=== PATIENT | female | born 1990 | race Caucasian/White ===

== ENCOUNTER → 2018-10-25 22:08 | Emergency (ER) | payer BC | END | disposition still patient (30) | LOC: JD.ED 22:08 | DX: Z53.21 Procedure and treatment not carried out due to patient leaving prior to being seen by health care provider (principal) ==

== ENCOUNTER 2019-03-17 07:10 | Day surgery (SDC) | payer BC ==
--- NOTE | 2019-03-16 12:40 | PCM.LDHP ---
L&D History of Present Illness - General Date of Service: 03/17/19 Admit Problem/Dx: Admission Diagnosis/Problem Admission Diagnosis/Problem 03/16/19 12:31 10 5/7 week intrauterine , incompetent cervix. Source of Information: Patient History Limitations: Reports: No Limitations - History of Present Illness Introduction:: Bossman is a 28-year-old 2 para 1001 white female who is at 10- 5/7 weeks gestational age upon admission for a modified Shirodkar cervical cerclage placement. Her LEE is 10/07/2019 as based upon ultrasound and last menstrual period. Dating. The patient has had 2 ultrasounds both correlating well with dates. Last ultrasound done in evaluation of cervix shows a minimally dilated cervix at 4 mm. Length the cervix is normal at 3.57 and 4.03 cm on 2 evaluations. Patient has a history of 20 week loss with circumstances consistent with incompetent cervix. The procedure of modified Shirodkar cervical cerclage, risks, benefits, alternatives of care and follow-up were all discussed with patient. These include possible miscarriage, bleeding, infection , anesthesia problems, injury, other less frequent complications. She appears understand and wishes to proceed. Procedure in history 2 Para 0100. Certain last menstrual period. Started on 12/31/2018 not using any control at time of conception. Menstrual cycles every month to 35 days. Menarche 13. Last delivery occurred at 23 weeks gestational age after 5 hours of contractions/pressure. Male . demise. Baby's name was John Tsang. Allergies: 1. Amoxicillin which causes hives 2. Doxycycline which causes a rash Medications: 1. Aspirin 81 mg daily 2. Full gases 800 g daily 3. Progesterone vaginal [id number] mg per vagina twice a day 4. vitamins 1 daily Past medical history: 1. loss23 weeks-suspicious for incompetent cervix. Past surgical history: Unremarkable Family history: Mother is alive and well. Father is secondary to alcohol related to motor vehicle accident. 2 sisters alive and well. Paternal grandmother is alive with high blood pressure, high cholesterol and history of deep venous thrombosispresently age 92. Also had hypothyroidism on meds. Maternal grandfather is alive with blood pressure and high cholesterolage 85. Paternal grandmother secondary to alcoholism and was lung transplant patientwas a smoker. Grandfather secondary to Hodgkin's lymphoma. No other anesthesia, bleeding, blood clotting, -related problems noted in the family. Social history: Patient is single. Works at [employer]. Lives in [place], [place]. Does not use any significant muscle L call, drugs or tobacco. Significant other and father the baby is Ken Tsang. Review of systems: In general patient has no complaints. She does have some symptoms but these are manageable. Has no symptoms of labor, cramps or pelvic pressure. Skin: Negative Lungs: No infectious symptoms or shortness of breath Cardiovascular: No chest pain or exercise intolerance Breasts: No lumps, changes in size, pain, dimpling, discharge or axillary or supraclavicular concerns. GI: Negative : Negative other than symptoms Musculoskeletal: Negative Neurological: Negative In general the patient is well-developed, well-nourished, pleasant female of stated age in no acute distress. Vital signs: Weight is 245. Height is 5 feet 6. Pre BMI was 38.2. Blood pressure 112/64. Skin is warm dry without lesions. HEENT, neck and back within normal limits. Lungs are clear with good breath sounds in all lung mccarthy. Cardiovascular exam shows regular and rhythm without murmurs. Abdomen is flat, soft, nontender without masses or organomegaly. Positive bowel sounds are noted. No inguinal lymphadenopathy or hernias are noted. Genital per speculum bimanual shows normal external genitalia, BUS, pubic hair pattern. There is normal support, secretions and estrogenization vagina. Uterus is 11 weeks size, anterior, freely mobile, without parametrial induration or adnexal abnormalities. Cervix as described above. Extremities and neurological exam are grossly within normal limits. 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 - Past Surgical History HEENT Surgical History: Reports: Oral Surgery H&P Review of Systems - Review of Systems: Review Of Systems: See Below L&D Exam - Exam Exam: See Below Problem List Initiated/Reviewed/Updated: Yes Orders Last 24hrs: Active Orders 24 hr Category Date Time Status Peripheral IV Care [RC] . DIRECTED Care 03/17/19 00:01 Active Verify Patient Consent Obtain [RC] ASDIRECTED Care 03/17/19 00:01 Active Lactated Ringers [Ringers, Lactated] 1,000 ml Med 03/17/19 00:01 Active IV ASDIRECTED Lidocaine 1%/Sod Bicarbonate [Buffered Lidocaine 1% in Med 03/17/19 00:01 Active NS 8.4%] 0.25 ml IDERM ONETIME PRN Sodium Chloride 0.9% [Saline Flush] Med 03/17/19 00:01 Active 10 ml FLUSH ASDIRECTED PRN Medication Administration Instruction [OM.PC] Routine Oth 03/17/19 00:01 Ordered Peripheral IV Insertion Adult [OM.PC] Routine Oth 03/17/19 00:01 Ordered Medication Orders Lactated Ringer's (Ringers, Lactated) 1,000 mls @ 125 mls/hr IV ASDIRECTED LA Stop: 03/17/19 23:00 Lidocaine/Sodium Bicarbonate (Buffered Lidocaine 1% In Ns 8.4%) 0.25 ml IDERM ONETIME PRN PRN Reason: Prior to IV Start Stop: 03/17/19 18:00 Sodium Chloride (Saline Flush) 10 ml FLUSH ASDIRECTED PRN PRN Reason: Keep Vein Open Stop: 03/17/19 18:00 Assessment/Plan Comment:: 1. History of incompetent cervix?10-5/7 week intrauterine at time of admission for a modified Shirodkar cervical cerclage 2. Risk factors for the -increased weight, . Plan: 1. Modified Shirodkar cervical cerclage 2. DVT prophylaxis with SCDs 3. Infection prophylaxis with Ancef 2 g IV preop. We'll give a test dose prior to this because of her allergy to penicillins. 4. labs done. These were forwarded to the OR.
[~2019-03-17 07:10] MED LIST: Lactated Ringers 1,000 ML IV SCH; Lidocaine 1%/Sod Bicarbonate in NS 8.4% 1 ML Syringe IDERM PRN; Sodium Chloride 0.9% 10 ML Syringe FLUSH PRN
[2019-03-17] MEDS ORDERED: Ondansetron 4 MG/2 ML SDV ONE (07:28)
[2019-03-17] MEDS ORDERED: Propofol 200 MG/20 ML SDV ONE (07:28)
[2019-03-17] MEDS ORDERED: Rocuronium 50 MG/5 ML Vial ONE (07:28)
[2019-03-17] MEDS ORDERED: fentaNYL 250 MCG/5 ML SDV ONE (07:29)
[2019-03-17] MEDS ORDERED: ceFAZolin 1 GM Vial ONE (07:29)
[2019-03-17] MEDS ORDERED: Lidocaine 1% 4 ML ONE (07:29)
[2019-03-17] MEDS ORDERED: Midazolam 1 MG/ML 2 ML SDV ONE (07:29)
--- NOTE | 2019-03-17 07:47 | PCM.PREANE ---
Preanesthetic Assessment - Anesthesia/Transfusion/Family Hx Anesthesia History: Prior Anesthesia Without Reaction Family History of Anesthesia Reaction: No Transfusion History: No Prior Transfusion(s) - Review of Systems General: No Symptoms Pulmonary: No Symptoms Cardiovascular: Dyspnea on Exertion Gastrointestinal: No Symptoms Neurological: No Symptoms Other: Reports: None - Physical Assessment NPO Status Date: 03/16/19 NPO Status Time: 00:00 Pulse: 89 O2 Sat by Pulse Oximetry: 96 Respiratory Rate: 18 Blood Pressure: 150/91 Temperature: 36.9 C Height: 1.68 m Weight: 109.588 kg ASA Class: 2 Mental Status: Alert & Oriented x3 Airway Class: Mallampati = 2 Dentition: Reports: Normal Dentition, [place](s) Thyro-Mental Finger Breadths: 2 Mouth Opening Finger Breadths: 2 ROM/Head Extension: Full Lungs: Clear to Auscultation, Normal Respiratory Effort Cardiovascular: Regular Rate, Regular Rhythm - Allergies Allergies/Adverse Reactions: Allergies Allergy/AdvReac Type Severity Reaction Status Date / Time amoxicillin Allergy Rash Verified 03/16/19 13:32 doxycycline Allergy Rash Verified 03/16/19 13:32 - Blood Blood Available: No Product(s) Available: None - Anesthesia Plan Pre-Op Medication Ordered: None - Acknowledgements Anesthesia Type Planned: General Anesthesia Pt an Appropriate Candidate for the Planned Anesthesia: Yes Alternatives and Risks of Anesthesia Discussed w Pt/Guardian: Yes Pt/Guardian Understands and Agrees with Anesthesia Plan: Yes PreAnesthesia Questionnaire HEENT History: Reports: None Cardiovascular History: Reports: None Respiratory History: Reports: Asthma Gastrointestinal History: Reports: None Genitourinary History: Reports: None 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 Musculoskeletal History: Reports: None Neurological History: Reports: None Psychiatric History: Reports: None Endocrine/Metabolic History: Reports: None Hematologic History: Reports: None Immunologic History: Reports: None Oncologic (Cancer) History: Reports: None Dermatologic History: Reports: None - Past Surgical History Head Surgeries/Procedures: Reports: None HEENT Surgical History: Reports: Oral Surgery Cardiovascular Surgical History: Reports: None Respiratory Surgical History: Reports: None GI Surgical History: Reports: None Female Surgical History: Reports: None Male Surgical History: Reports: None Endocrine Surgical History: Reports: None Neurological Surgical History: Reports: None Musculoskeletal Surgical History: Reports: None Oncologic Surgical History: Reports: None Dermatological Surgical History: Reports: None - SUBSTANCE USE Smoking Status *Q: Never Smoker Tobacco Use Within Last Twelve Months: No Second Hand Smoke Exposure: Yes Days Per Week of Alcohol Use: 0 Number of Drinks Per Day: 0 Total Drinks Per Week: 0 Recreational Drug Use History: No - HOME MEDS Home Medications: Home Meds Aspirin [Ecotrin] 81 mg PO DAILY 03/16/19 [History] Folic Acid 0.8 mg PO DAILY 03/16/19 [History] Pnv No.95/Ferrous Fum/Folic AC [ Caplet] 1 tab PO DAILY 03/16/19 [ History] Progesterone Vaginal Suppos 1 dose VAG BID 03/16/19 [History] - CURRENT (IN HOUSE) MEDS Current Meds: Current Medications Lactated Ringer's (Ringers, Lactated) 1,000 mls @ 125 mls/hr IV ASDIRECTED LA Stop: 03/17/19 23:00 Lidocaine/Sodium Bicarbonate (Buffered Lidocaine 1% In Ns 8.4%) 0.25 ml IDERM ONETIME PRN PRN Reason: Prior to IV Start Stop: 03/17/19 18:00 Sodium Chloride (Saline Flush) 10 ml FLUSH ASDIRECTED PRN PRN Reason: Keep Vein Open Stop: 03/17/19 18:00 Discontinued Medications Cefazolin Sodium (Ancef) Confirm Administered Dose 2 gm .ROUTE .STK-MED ONE Stop: 03/17/19 07:30 Fentanyl (Sublimaze) Confirm Administered Dose 250 mcg .ROUTE .STK-MED ONE Stop: 03/17/19 07:30 Lidocaine HCl (Xylocaine-Mpf 1%) Confirm Administered Dose 4 mls @ as directed .ROUTE .STK-MED ONE Stop: 03/17/19 07:30 Midazolam HCl (Versed 1 Mg/Ml) Confirm Administered Dose 2 mg .ROUTE .STK-MED ONE Stop: 03/17/19 07:30 Ondansetron HCl (Zofran) Confirm Administered Dose 4 mg .ROUTE .STK-MED ONE Stop: 03/17/19 07:29 Propofol (Diprivan 20 Ml) Confirm Administered Dose 200 mg .ROUTE .STK-MED ONE Stop: 03/17/19 07:29 Rocuronium [place] (Zemuron) Confirm Administered Dose 50 mg .ROUTE .[facility] ONE Stop: 03/17/19 07:29
[2019-03-17] MEDS ORDERED: Lactated Ringers 1,000 ML ONE (08:39)
[2019-03-17] MEDS ORDERED: Acetaminophen 325 MG Tab PO PRN (08:47)
--- NOTE | 2019-03-17 08:52 | PCM.OPNOTE ---
- General Post-Op/Procedure Note Date of Surgery/Procedure: 03/17/19 Operative Procedure(s): Modified Shirodkar cervical cerclage Findings: Cervix was dilated to 5-10 mm. Cervical consistency was very soft. Pre Op Diagnosis: 1. 10-5/7 week intrauterine . 2. Incompetent cervix Post-Op Diagnosis: Same Anesthesia Technique: General LMA Primary Surgeon: Matias Mejia Secondary Surgeon: Estevan Clifford Anesthesia Provider: Robel Hdez Reason Retail Property Manager Was Necessary: Retraction, assistance, patient safety, quality of care. Fluid Replacement, Intraop: 1,000 EBL in mLs: 5 Complications: None Condition: Good Free Text/Narrative:: Surgery duration: 12 minutes Procedure: The patient was taken to the operating room and placed in a supine position on the operating table. She received 2 g of Ancef preoperatively for infection prophylaxis and had sequential compression stockings in place for DVT prophylaxis. She was administered MAC anesthesia and after adequate anesthesia was placed in a dorsal lithotomy position. Patient was prepped on the exterior by staff and was draped in usual fashion. A speculum was placed and a very gentle internal Betadine prep was done by myself. Cervix was visualized, evaluated and found to be dilated as previously documented. The anterior lip of the cervix and the posterior lip of the cervix were grasped with ring forceps and gently retracted to length and cervix as much as possible. 5 mm incision was made at the 12:00 and at 6 start position through which the Tevdek tape was passed. Using Tevdek tape a circumferential stitch was placed with around the cervix at the highest possible position. It was placed in a modified Shirodkar fashion entering the subepithelial layer anteriorly at 12 o'clock position and placed in full circumference to anchor the suture in the appropriate position. When this was finished it was tied at the 12 o'clock position. An 2-0 silk suture was then used to secure the ends of the Tevdek tape to keep them from unraveling. At this time old blood was removed from the vagina. The cervix was noted to be entirely closed with the suture placement. Stitch was in place and approximately 1-1/2 cm from the end of the cervix. No problems were encountered. hemostasis was confirmed. The speculum was removed from the vagina , patient was returned to supine position and anesthesia was reversed. She left the operating room in good condition.
--- NOTE | 2019-03-17 09:06 | PCM.POSTAN ---
POST ANESTHESIA ASSESSMENT - MENTAL STATUS Mental Status: Alert, Oriented - VITAL SIGNS Pulse Rate: 109 SaO2: 92 Resp Rate: 11 Blood Pressure: 152/78 Temperature: 36.4 C - RESPIRATORY Respiratory Status: Respiratory Rate WNL, Airway Patent, O2 Saturation Stable, Supplemental Oxygen - CARDIOVASCULAR CV Status: Pulse Rate WNL, Blood Pressure Stable - GASTROINTESTINAL GI Status: No Symptoms - PAIN Pain Score: 0 - POST OP HYDRATION Hydration Status: Adequate & Stable - OBSERVATIONS Free Text/Narrative:: no anesthesia complications noted
== END 2019-03-17 12:08 | disposition home or self-care (01) ==
LOC: JD.SDS 07:10
PROVIDERS: ATTEND Obstetrics & Gynecology
DX: O34.31 Maternal care for cervical incompetence, first trimester (principal); O99.511 Diseases of the respiratory system complicating pregnancy, first trimester; J45.909 Unspecified asthma, uncomplicated; O99.281 Endocrine, nutritional and metabolic diseases complicating pregnancy, first trimester; E28.2 Polycystic ovarian syndrome; O09.291 Supervision of pregnancy with other poor reproductive or obstetric history, first trimester; Z3A.10 10 weeks gestation of pregnancy; Z88.0 Allergy status to penicillin; Z88.1 Allergy status to other antibiotic agents; Z79.82 Long term (current) use of aspirin; Z79.899 Other long term (current) drug therapy
CPT/HCPCS: 59320; J0690; J2001; J2405; J2704; J3010; J7120; 00948; J2250

== ENCOUNTER 2019-10-02 08:37 | Inpatient (IN) | payer BC ==
--- NOTE | 2019-10-02 20:11 | PCM.LDHP ---
L&D History of Present Illness - General Date of Service: 10/02/19 Admit Problem/Dx: Admission Diagnosis/Problem Admission Diagnosis/Problem 10/02/19 19:58 Bossman is a 29 y/o G 2 P 0100 white female who is admitted at 39 2/7 weeks GA with an LEE of 10/07/2019 for induction of labor. Source of Information: Patient History Limitations: Reports: No Limitations - History of Present Illness Introduction:: Bossman is a 29 y/o G 2 P 0100 white female who is admitted at 39 2/7 weeks GA with an LEE of 10/07/2019 for induction of labor.She has a history of incompetent cervix with last with which she delivered at 23 weeks gestational age in a fashion such that she had no significant labor symptoms until the time of immediate delivery. Were consistent most probably with incompetent cervix. Patient underwent modified Shirodkar cervical cerclage with this at approximately 12 weeks' gestation. The cervical cerclage was removed at 37-4/7 weeks gestational age without problems. She lives in [place], [place] and is admitted for elective induction. The procedure, risks , benefits are discussed in detail patient. She appears to understand and wishes to proceed. Of note is that her last ultrasound performed at 38+ weeks estimated weight to be 9 lbs. 2 oz. She is a gestational diabetic and has been on diet control initially and then glyburide 5 mg per day control thereafter reaches had blood sugars under good control with glyburide therapy. She's been on baby aspirin 81 mg per day. 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 LEE 10/07/2019 is based upon a certain last menstrual. Supported by multiple pregnancies throughout the course of . Patient's previous obstetric history includes menarche age 13. Cycles every month. LMP relatively certain. Patient delivered on 10/25/2018 at 23 weeks gestational age after what appeared to be a precipitous labor male infant delivered named John Tsang who shortly after because of severe prematurity. course: Patient is seen for first visit on 03/14/2019 at 10 weeks and 3 days.. She had a previous early ultrasound both ultrasounds supported her LEE of 10/07/2019. Patient is made approximately 19 pound weight gain from 245-264 pounds during the course of the . Her vital signs were stable throughout the course. Fundal height growth has been appropriate. Estimated weight is ahead of schedule. Patient had a negative group B strep screen. She is gestational diabetic on glyburide. 5 Shirodkar cerclage was placed at about 12 weeks gestational age and was removed at 37-4/7 weeks gestational age on 09/20/2019. By physical profiles starting at 32 weeks and all were within normal limits. She declined genetic testing. [place] depression screening score on 05/31/2019 was 6/30. The patient had supplementation with progesterone early in the due to progesterone deficiency. She received the supplementation via vaginal suppository to the end of 12 weeks' gestation. She is felt to have polycystic ovarian syndrome.The patient received her influenza immunization on 08/02/2019. Her T dap was given on 08/02/2019. She is rubella immune. Laboratory tests and shows blood to be a positive with negative antibody screen. First hemoglobin is 13.0 g/dL with platelets of 441, 000. She is rubella immune. RPR is nonreactive. Urine culture was negative. Hepatitis B surface antigen and HIV assays were both negative. Chlamydia and gonorrhea tests were both negative. Second trimester labs included a hemoglobin of 10.6 g or deciliter and platelets at 349,000. Her diabetic screening test was 200. Gestational diabetic with this one result. Her RPR on 07/04/2019 is nonreactive. Her group B strep screen was negative. Patient's diabetes was initially controlled with diet but with time. Patient failed diet control alone and was started on glyburide. With glyburide therapy blood sugars have been reasonable. Allergies: 1. Amoxicillin which causes hives 2. Doxycycline which causes a rash Medications: 1. Glyburide 5 mg by mouth daily at at bedtime 2. Aspirin 81 mg by mouth daily 3. Folic acid 800 g by mouth daily 4. vitamins 1 by mouth daily Past medical history: 1. Polycystic ovarian syndrome. 2. Incompetent cervix 3. Obesity Past surgical history: 1. Placement of modified Shirodkar cervical cerclage placed on 03/17/2019 at approximately 12 weeks gestational age. Family history: Others alive and well. Father is secondary to an alcohol-related motor vehicle accident. 2 sisters are alive and well. Maternal grandmother is alive but with high blood pressure, high cholesterol and blood clots in her legs at age 92. Maternal grandfather is alive with high blood pressure and high cholesterol at age 85. Paternal grandmother is secondary to alcoholism. Was a smoker. Did have a lung transplant. Paternal grandfather is 6 secondary to Hodgkin's lymphoma. No other known family history of cancer. No bleeding or blood clotting disorders, anesthesia- related problems or related concerns. Grandmother also had hypothyroidism diagnosed in her late 60s and placed on medications. Social history: Patient is single. Significant other is Ken Tsang. They live in [facility]. She works at [employer]. She has had some college education. She does not use any significant loss of alcohol, drugs or tobacco. Review of systems: In general patient has no complaints. Baby has been active. She has not had any significant contractions. Skin: Negative Lungs: No infectious symptoms or shortness of breath Cardiovascular: No chest pain or exercise intolerance Breasts: Changes associated with . GI: Negative : As related to . Cervix is 2 cm dilated, 80% effaced, -4 station, cephalic presentation, soft, mid position. Musculoskeletal: Negative Neurological: Negative - Related Data Allergies/Adverse Reactions: Allergies Allergy/AdvReac Type Severity Reaction Status Date / Time amoxicillin Allergy Hives Verified 03/17/19 07:54 doxycycline Allergy Hives Verified 03/17/19 07:54 Home Medications: Home Meds Aspirin [Ecotrin EC] 81 mg PO BEDTIME 03/16/19 [History] Folic Acid 0.8 mg PO BEDTIME 03/16/19 [History] Pnv No.95/Ferrous Fum/Folic AC [ Caplet] 1 tab PO BEDTIME 03/16/19 [ History] Progesterone Vaginal Suppos 1 dose VAG BID 03/16/19 [History] Acetaminophen [Tylenol] 650 mg PO Q4H PRN tablet 03/17/19 [Rx] Past Medical History HEENT History: Reports: None Cardiovascular History: Reports: None Respiratory History: Reports: Asthma Gastrointestinal History: Reports: None Genitourinary History: Reports: None 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 Musculoskeletal History: Reports: None Neurological History: Reports: None Psychiatric History: Reports: None Endocrine/Metabolic History: Reports: None Hematologic History: Reports: None Immunologic History: Reports: None Oncologic (Cancer) History: Reports: None Dermatologic History: Reports: None - Past Surgical History Head Surgeries/Procedures: Reports: None HEENT Surgical History: Reports: Oral Surgery Cardiovascular Surgical History: Reports: None Respiratory Surgical History: Reports: None GI Surgical History: Reports: None Female Surgical History: Reports: None Male Surgical History: Reports: None Endocrine Surgical History: Reports: None Neurological Surgical History: Reports: None Musculoskeletal Surgical History: Reports: None Oncologic Surgical History: Reports: None Dermatological Surgical History: Reports: None Social & Family History - Caffeine Use Caffeine Use: Reports: Coffee H&P Review of Systems - Review of Systems: Review Of Systems: See Below L&D Exam - Exam Exam: See Below Problem List Initiated/Reviewed/Updated: Yes Assessment/Plan Comment:: 1.39-2/7 week intrauterine , history of incompetent cervix with cerclage placement/removal now admitted for induction of labor. 2. Risk factors include the following: History of incompetence cervix requiring cerclage, the distance from the hospital, history of gestational diabetes on medications, history of PCO S and estimated weight of 9 lbs. 2 oz. on last ultrasound. 3. Group B strep negative. 4. Patient is up-to-date regarding her influenza vaccination, Her T dap and her rubella immunization. 5. Patient plans to breast-feed 6. Patient like to do natural labor but is accepting of an epidural if necessary Plan: 1. Pitocin induction of labor to be followed by artificial rupture membranes augmentation when the baby's head descensus.. 2. Epidural when necessary per patient desire 3. Support breast-feed incision 4. I discussed with patient yesterday weight of the baby and alternative routes of delivery. She would like to proceed with labor. She is understanding of the increased risk for possible , older dystocia, possible injury. 5. We'll monitor labor closely. We'll intervene as indicated.
[2019-10-02] MEDS ORDERED: Sodium Chloride 0.9% 10 ML Syringe FLUSH PRN (20:17)
[2019-10-02] MEDS ORDERED: Ondansetron 4 MG/2 ML SDV IVPUSH PRN (20:17)
[2019-10-02] MEDS ORDERED: Calcium Carbonate 500 MG Tab.Chew PO PRN (20:17)
[2019-10-02] MEDS ORDERED: Lidocaine 1% 50 ML MDV INJECT ONE (20:17)
[2019-10-02] MEDS ORDERED: Nalbuphine 10 MG/1 ML Vial IVPUSH PRN (20:17)
[2019-10-02] MEDS ORDERED: Oxytocin/Lactated Ringers 10 UNIT/1,000 ML BAG IV SCH ×2 (20:30)
[2019-10-02] MEDS: Lactated Ringers 1,000 ML IV SCH (21:03)
[2019-10-03] MEDS ORDERED: Bupivacaine 0.25% 10 ML SDV ONE
[2019-10-03] MEDS ORDERED: fentaNYL 100 MCG/2 ML SDV EPIDUR PRN (07:01)
[2019-10-03] MEDS ORDERED: Ondansetron 4 MG/2 ML SDV IVPUSH PRN ×2 (07:01→22:02)
[2019-10-03] MEDS ORDERED: ePHEDrine 50 MG/ML SDV IVPUSH PRN ×2 (07:01→22:02)
--- NOTE | 2019-10-03 07:03 | PCM.PREANE ---
Preanesthetic Assessment - Anesthesia/Transfusion/Family Hx Anesthesia History: Prior Anesthesia Without Reaction Family History of Anesthesia Reaction: No Transfusion History: No Prior Transfusion(s) Intubation History: Unknown - Review of Systems General: No Symptoms Pulmonary: No Symptoms Cardiovascular: No Symptoms Gastrointestinal: No Symptoms Neurological: No Symptoms Other: Reports: Diabetes (gestational DM), Sinus Problem (seasonal allergies) - Physical Assessment NPO Status Date: 10/03/19 Vital Signs: Last Vital Signs Temp 36.5 C 10/02/19 19:10 Pulse 95 10/02/19 19:10 Resp 16 10/02/19 19:10 BP 149/79 H 10/02/19 19:10 Pulse Ox 96 10/02/19 19:10 Height: 1.68 m Weight: 122.289 kg ASA Class: 2 Mental Status: Alert & Oriented x3 Airway Class: Mallampati = 2 Dentition: Reports: Normal Dentition, Caries Thyro-Mental Finger Breadths: 3 Mouth Opening Finger Breadths: 3 ROM/Head Extension: Full Lungs: Clear to Auscultation, Normal Respiratory Effort Cardiovascular: Regular Rate, Regular Rhythm, No Murmurs - Lab Values: Laboratory Last Values WBC 8.20 K/mm3 (3.98-10.04) 10/02/19 20:40 RBC 3.71 M/mm3 (3.98-5.22) L 10/02/19 20:40 Hgb 11.2 gm/dl (11.2-15.7) 10/02/19 20:40 Hct 33.5 % (34.1-44.9) L 10/02/19 20:40 MCV 90.3 fl (79.4-94.8) 10/02/19 20:40 MCH 30.2 pg (25.6-32.2) 10/02/19 20:40 MCHC 33.4 g/dl (32.2-35.5) 10/02/19 20:40 RDW Std Deviation 45.5 fL (36.4-46.3) 10/02/19 20:40 Plt Count 292 K/mm3 (182-369) 10/02/19 20:40 MPV 10.0 fl (9.4-12.3) 10/02/19 20:40 Neut % (Auto) 70.0 % (34.0-71.1) 10/02/19 20:40 Lymph % (Auto) 16.6 % (19.3-51.7) L 10/02/19 20:40 [place] % (Auto) 11.7 % (4.7-12.5) 10/02/19 20:40 Eos % (Auto) 1.5 (0.7-5.8) 10/02/19 20:40 Baso % (Auto) 0.1 % (0.1-1.2) 10/02/19 20:40 Neut # (Auto) 5.74 K/mm3 (1.56-6.13) 10/02/19 20:40 Lymph # (Auto) 1.36 K/mm3 (1.18-3.74) 10/02/19 20:40 [place] # (Auto) 0.96 K/mm3 (0.24-0.36) H 10/02/19 20:40 Eos # (Auto) 0.12 K/mm3 (0.04-0.36) 10/02/19 20:40 Baso # (Auto) 0.01 K/mm3 (0.01-0.08) 10/02/19 20:40 RPR Non-reactive (NONREACTIVE) 10/02/19 20:40 Above labs reviewed and noted and within acceptable ranges to proceed with epidural if desired. - Allergies Allergies/Adverse Reactions: Allergies Allergy/AdvReac Type Severity Reaction Status Date / Time amoxicillin Allergy Hives Verified 10/02/19 20:28 doxycycline Allergy Hives Verified 10/02/19 20:28 - Anesthesia Plan Pre-Op Medication Ordered: None - Acknowledgements Anesthesia Type Planned: Spinal, Epidural Pt an Appropriate Candidate for the Planned Anesthesia: Yes Alternatives and Risks of Anesthesia Discussed w Pt/Guardian: Yes Pt/Guardian Understands and Agrees with Anesthesia Plan: Yes PreAnesthesia Questionnaire HEENT History: Reports: None Other HEENT History: Wears glasses Cardiovascular History: Reports: None Respiratory History: Reports: Asthma Gastrointestinal History: Reports: None Genitourinary History: Reports: None BUSINESS DEVELOPMENT History: Reports: Polycystic 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 Musculoskeletal History: Reports: None Neurological History: Reports: None Other Neuro History: Carpal tunnel Psychiatric History: Reports: None Endocrine/Metabolic History: Reports: None Hematologic History: Reports: None Immunologic History: Reports: None Oncologic (Cancer) History: Reports: None Dermatologic History: Reports: None - Past Surgical History Head Surgeries/Procedures: Reports: None HEENT Surgical History: Reports: Oral Surgery Cardiovascular Surgical History: Reports: None Respiratory Surgical History: Reports: None GI Surgical History: Reports: None Female Surgical History: Reports: None Male Surgical History: Reports: None Endocrine Surgical History: Reports: None Neurological Surgical History: Reports: None Musculoskeletal Surgical History: Reports: None Oncologic Surgical History: Reports: None Dermatological Surgical History: Reports: None - SUBSTANCE USE Smoking Status *Q: Former Smoker Tobacco Use Within Last Twelve Months: No Recreational Drug Use History: No - HOME MEDS Home Medications: Home Meds Aspirin [Ecotrin EC] 81 mg PO BEDTIME 03/16/19 [History] Folic Acid 0.8 mg PO BEDTIME 03/16/19 [History] Pnv No.95/Ferrous Fum/Folic AC [ Caplet] 1 tab PO BEDTIME 03/16/19 [ History] Ferrous Sulfate [Iron] 325 mg PO DAILY 10/02/19 [History] glyBURIDE [Glyburide] 2.5 mg PO DAILY 10/02/19 [History] - CURRENT (IN HOUSE) MEDS Current Meds: Current Medications Calcium Carbonate/Glycine (Tums) 1,000 mg PO Q2H PRN PRN Reason: Indigestion Lactated Ringer's (Ringers, Lactated) 1,000 mls @ 100 mls/hr IV ASDIRECTED LA Last Admin: 10/02/19 21:03 Dose: 100 mls/hr Oxytocin 20 unit/ Lactated (Ringer's) 1,002 mls @ 6.01 mls/hr IV TITRATE LA; Protocol Last Titration: 10/03/19 05:15 Dose: 30 munits/min, 90.18 mls/hr Oxytocin/Lactated Ringer's (Pitocin In Lr 10 Units/1,000 Ml) 10 unit in 1,000 mls @ 12 mls/hr IV TITRATE LA; Protocol Last Titration: 10/02/19 23:50 Dose: 20 munits/min, 120 mls/hr Oxytocin/Lactated Ringer's (Pitocin In Lr 10 Units/1,000 Ml) 10 unit in 1,000 mls @ 500 mls/hr IV .CONTINUOUS LA Nalbuphine HCl (Nubain) 10 mg IVPUSH Q2H PRN PRN Reason: Pain Ondansetron HCl (Zofran) 4 mg IVPUSH Q4H PRN PRN Reason: Nausea/Vomiting Sodium Chloride (Saline Flush) 10 ml FLUSH ASDIRECTED PRN PRN Reason: Keep Vein Open Discontinued Medications Lidocaine HCl (Xylocaine 1%) 20 ml INJECT ONETIME ONE Stop: 10/02/19 20:18
[2019-10-03] MEDS: Bupivacaine/fentaNYL/NS 100 ML Bag EPIDUR PRN ×2 (09:40→20:00)
[2019-10-03] MEDS: Lactated Ringers 1,000 ML IV SCH ×3 (11:04→21:20)
[2019-10-03] MEDS ORDERED: Oxytocin/Lactated Ringers 20 UNIT/1,000 ML BAG ONE (11:23)
[2019-10-03] MEDS ORDERED: Sodium Chloride 0.9% 100 ML ONE (19:21)
[2019-10-03] MEDS ORDERED: Ampicillin 2 GM AdvVial IV ONE (19:21)
[2019-10-03] MEDS: Ampicillin 2 GM in Sodium Chloride 0.9% 100 ML IV SCH (19:25)
[2019-10-03] MEDS ORDERED: Acetaminophen 325 MG Tab PO PRN (19:30)
[2019-10-03] MEDS ORDERED: Citric Acid/Sodium Citrate Solution 30 ML Cup ONE (21:09)
[2019-10-03] MEDS ORDERED: Metoclopramide 10 MG/2 ML SDV ONE (21:09)
[2019-10-03] MEDS ORDERED: Metoclopramide 10 MG/2 ML SDV IVPUSH ONE (21:11)
[2019-10-03] MEDS ORDERED: Citric Acid/Sodium Citrate Solution 30 ML Cup PO ONE (21:11)
[2019-10-03] MEDS ORDERED: Azithromycin 500 MG in Sodium Chloride 0.9% 250 ML IV ONE (21:12)
--- NOTE | 2019-10-03 21:19 | PCM.SN ---
- Free Text/Narrative Note: Bossman is a 29 y/o G 2 P 0100 white female who is admitted at 39 2/7 weeks GA with an LEE of 10/07/2019 for induction of labor. She was started on Pitocin on the evening of 10/02/2019. Very slow progress until a.m. of 10/03/2019 at which time she was found to be near 100% effaced, 2 cm dilated -3 station but with head well applied to the cervix. Artificial rupture membranes was undertaken. With this and Pitocin therapy the patient achieved very adequate labor and made steady progress to approximately 7-8 cm. At one point she was felt to be 9 cm by nursing evaluation. My last evaluation approximately 3-1/2 hours ago was 8 cm at which time she was 100% effaced and 0 station. She had this time has not changed her cervix dilation cabrera. She is actually thickened or cervix and despite adequate contractions does not appear to have made any progress. Over the course the last 1-1/2 hours her temperature is elevated to 101. CBC shows white count to be 12,000+ and other parameters are reasonably normal. She has received ampicillin 2 g IV in addition to approximately 6 L total of fluid over the last 12-18 hours. heart tones been very reassuring. heart rate has increased to the 160-1 70 bpm range. Good variability is noted. Amniotic fluid has been clear. In view of her history of gestational diabetes on glyburide with estimated weight last week while sound at 9 lbs. 2 oz., her as relatively slow progression of labor and now no further advancement of labor over the course the last 3-4 hours in addition to the thickening of the cervix on evaluation the options of intervention at this time including possibility of primary section. The procedure, risks, benefits, continued labor all discussed with patient in light of the above factors. She appears to understand and would like to proceed to section. section is discussed in detail including the increased risk of infection because of her febrile state. She appears to understand. We'll proceed to primary low uterine segment transverse section. We'll give azithromycin 500 mg IV in addition to Ancef preoperatively for infection prophylaxis.
[2019-10-03] MEDS ORDERED: Bupivacaine 0.5% 30 ML SDV ONE (21:32)
[2019-10-03] MEDS ORDERED: Phenylephrine/Normal Saline 100 MCG/ML 10 ML Syringe ONE ×2 (21:33→22:26)
[2019-10-03] MEDS ORDERED: Lidocaine 2% with EPINEPHrine 1:200,000 20 ML SDV ONE (21:33)
[2019-10-03] MEDS ORDERED: Ketorolac 30 MG/ML SDV ONE (21:33)
[2019-10-03] MEDS ORDERED: Lactated Ringers 2,000 ML ONE (21:33)
[2019-10-03] MEDS ORDERED: Oxytocin 10 Units/1 ML SDV ONE (21:33)
[2019-10-03] MEDS ORDERED: Ondansetron 4 MG/2 ML SDV ONE (21:33)
[2019-10-03] MEDS ORDERED: Morphine PF 10 MG/10 ML SDV ONE ×2 (21:34→21:35)
[2019-10-03] MEDS ORDERED: fentaNYL 100 MCG/2 ML SDV ONE (21:34)
[2019-10-03] MEDS ORDERED: ceFAZolin 1 GM Vial ONE (21:37)
[2019-10-03] MEDS ORDERED: diphenhydrAMINE 50 MG/ML SDV IVPUSH PRN (22:02)
[2019-10-03] MEDS ORDERED: fentaNYL 100 MCG/2 ML SDV IVPUSH PRN (22:02)
[2019-10-03] MEDS ORDERED: HYDROmorphone 0.5 MG/0.5 ML Syringe IVPUSH PRN (22:02)
[2019-10-03] MEDS ORDERED: ePHEDrine/Normal Saline 25 MG/5 ML Syringe ONE (22:09)
[2019-10-03] MEDS ORDERED: Phenylephrine 1 MG in Sodium Chloride 0.9% 10 ML IV SCH (22:15)
--- NOTE | 2019-10-03 22:53 | PCM.OPNOTE ---
- General Post-Op/Procedure Note Date of Surgery/Procedure: 10/03/19 Operative Procedure(s): Primary lower uterine segment transverse section through Pfannenstiel skin incision Findings: Baby is in vertex presentation. Amniotic fluid?partially 500 mL?was clear upon entrance into the abdominal cavity. Ovaries appeared to be polycystic but otherwise within normal limits. Baby was a male and weighed 4460 g (9 lbs. 13 oz.), had Apgars of 8 and 9. The baby was born at 2200 hrs. on 2018. Surgery duration 42 minutes. Estimated blood loss 2100 mL. Antibiotics Ancef 2 g IV preop and azithromycin 500 mg IV preop. Urine output 125 ml. Pre Op Diagnosis: 1. 39-3/7 week intrauterine , failure to progress. 2. Gestational diabetescontrolled with oral medications. 3. Inspected macrosomic by ultrasound. 4. Febrile in labor Post-Op Diagnosis: Same with delivery of viable 4460 g (9 lbs. 13 oz.) male infant with Apgars of 8 and 9 at 2200 hrs. on 10/03/2019. Anesthesia Technique: Spinal Other Anesthesia Type: Marcaine 0.5%20 mL total Primary Surgeon: Matias Mejia Secondary Surgeon: Anastasia Judd Anesthesia Provider: Ana Paula Jasmine Reason Elevator Mechanic Apprentice Was Necessary: Retraction, assistance, patient safety, quality of care Fluid Replacement, Intraop: 2,100 Output, Urine Amount: 125 EBL in mLs: 2,100 Complications: None Condition: Good Free Text/Narrative:: Intake & Output 10/03/19 10/03/19 10/03/19 06:59 14:59 22:59 Intake Total 3000 Balance 3000 Surgery duration: Procedure: The patient is appropriately consented. Patient was transferred to the room and placed in a sitting position. Epidural anesthesia was administered through the epidural catheter. After confirmation of adequate anesthesia patient was placed in a supine position with a wedge under her right side to facilitate left lateral positioning. The patient was prepped and draped in usual fashion after Kim catheter was already placed . The anesthetic was checked and found to be adequate. 20 mL of Marcaine 0.5% was injected locally in the Pfannenstiel incision site. The Pfannenstiel skin incision was then made and carried down through skin, subcutaneous and fascial layers. The fascia was then undermined superiorly and inferiorly to allow for adequate operating room. The recti muscles midline and preperitoneal fat was bluntly dissected. Peritoneal cavity was entered longitudinally. The vesicouterine peritoneum was then incised transversely and bladder flap was developed. Myometrium was incised transversely to the level of the amniotic sac. This incision was extended bilaterally in a blunt fashion. The amniotic sac was then ruptured resulting in clear amniotic fluid. A hand is placed in the low uterine segment and the baby's head was brought forth through the incision. The baby was completely delivered using fundal pressure in a routine fashion. It was moderate amount of difficulty delivering the baby's shoulders. The nose and mouth were bulb suctioned. Baby's cord was clamped x2 cut and baby was handed off to attending brokerage manager Dr Roman. Placenta was expressed after cord blood was obtained. Uterus was then exteriorized to allow for easier closure. The cervix was assessed and found to be dilated adequately to allow egress of blood. There is a small extension on the left side of the uterus towards the cervix. The uterus was closed in 2 layers. The first layer a running locked suture of 0 Monocryl, the second layer a running locked vertical mattress suture of 0 Monocryl. [id number] suture was placed at left end of the incision to control 1 bleeder. Hemostasis confirmed at this time. Sponge instrument needle counts are correct. The uterus was returned to the abdominal cavity and lateral gutters were cleared of blood. Once again sponge needle counts are correct. The anterior abdominal wall was closed with a #1 PDS suture from angle to angle. The subcutaneous area was found to be free of any bleeders. interrupted sutures of 3-0 Monocryl were used to reapproximate the subcutaneous layer.Skin was closed with a running subcuticular stitch of 3-0 Monocryl in a vertical mattress suture fashion using a Curt needle. Prineo mesh /glue was then applied to further approximate the incision. It should be noted that patient received 2 g of Ancef and 500 mg of azithromycin IV preoperatively for infection prophylaxis and had Pitocin infused after delivery of the placenta to facilitate uterine contraction. Patient also received 0.2 mg of Methergine IM to facilitate increase in uterine tone and decrease bleeding. Uterus was somewhat flaccid after delivery but did tone up with medications. She also had sequential compression stockings in place for DVT prophylaxis. Patient was discharged from the operating room in satisfactory condition.
--- NOTE | 2019-10-03 22:54 | PCM.POSTAN ---
POST ANESTHESIA ASSESSMENT - MENTAL STATUS Mental Status: Alert - VITAL SIGNS Vital Signs: Last Vital Signs Temp 100.4 10/03/192240 Pulse 109 10/02/191 Resp 16 10/02/192240 BP 93/41 10/02/192240 Pulse Ox 93 10/02/192240 - RESPIRATORY Respiratory Status: Respiratory Rate WNL, Airway Patent, O2 Saturation Stable, Supplemental Oxygen - CARDIOVASCULAR CV Status: Pulse Rate WNL, Low Blood Pressure (stabilizes with vasopressors.) - GASTROINTESTINAL GI Status: No Symptoms - POST OP HYDRATION Hydration Status: Adequate & Stable
[2019-10-04] MEDS ORDERED: diphenhydrAMINE 50 MG/ML SDV IVPUSH PRN (00:35)
[2019-10-04] MEDS ORDERED: Acetaminophen/oxyCODONE 325-5 MG Tab PO PRN (00:35)
[2019-10-04] MEDS ORDERED: Naloxone 0.4 MG/ML SDV IVPUSH PRN (00:35)
[2019-10-04] MEDS ORDERED: ePHEDrine 50 MG/ML SDV IVPUSH PRN (00:35)
[2019-10-04] MEDS ORDERED: Dextrose 5%-Lactated Ringers 1,000 ML IV SCH (00:35)
[2019-10-04] MEDS ORDERED: Ondansetron 4 MG/2 ML SDV IV PRN (00:35)
[2019-10-04] MEDS ORDERED: Sodium Chloride 0.9% 500 ML IV SCH (01:15)
[2019-10-04] MEDS: Ibuprofen 800 MG Tab PO SCH ×3 (05:05→20:32)
[2019-10-04] MEDS: Ampicillin 2 GM in Sodium Chloride 0.9% 100 ML IV SCH (05:29)
--- NOTE | 2019-10-04 08:42 | PCM48HPAN ---
Post Anesthesia Note - EVALUATION WITHIN 48HRS OF ANESTHETIC Vital Signs in Normal Range: Yes Patient Participated in Evaluation: Yes Respiratory Function Stable: Yes Airway Patent: Yes Cardiovascular Function Stable: Yes Hydration Status Stable: Yes Pain Control Satisfactory: Yes Nausea and Vomiting Control Satisfactory: Yes Mental Status Recovered: Yes Vital Signs: Last Vital Signs Temp 36.9 C 10/04/19 05:33 Pulse 110 H 10/04/19 05:33 Resp 14 10/04/19 05:33 BP 144/94 H 10/04/19 05:33 Pulse Ox 95 10/04/19 05:33
[2019-10-04] MEDS: Prenatal Multivitamin with Calcium/Folic Acid/Iron Tab PO SCH (09:24)
[2019-10-04] MEDS: Docusate Sodium 100 MG Cap PO PRN (20:32)
[2019-10-05] MEDS: Ibuprofen 800 MG Tab PO SCH ×3 (04:26→19:59)
[2019-10-05] MEDS: Prenatal Multivitamin with Calcium/Folic Acid/Iron Tab PO SCH (08:22)
[2019-10-05] MEDS: Docusate Sodium 100 MG Cap PO PRN ×2 (08:22→20:23)
--- NOTE | 2019-10-05 18:17 | PCM.SN ---
- Free Text/Narrative Note: note: Patient is doing well in the period. Minimal lochia, voiding well, ambulated without problems. Nursing without concerns. Patient is afebrile, vital signs are stable Abdomen is flat, soft, uterus is below the umbilicus and is firm and nontender. Incision dry and intact. Mesh in place. Legs are nontender. Bilateral lower extremity edema noted. Assessment: recovery going well. Plan: Routine care. Patient be discharged home within the next 24-48 hours.
[2019-10-05] MEDS ORDERED: Magnesium Hydroxide 400 MG/5 ML Susp 30 ML Cup PO ONE (19:02)
[2019-10-06] MEDS ORDERED: Bisacodyl 10 MG Supp RECTAL STA (02:39)
[2019-10-06] MEDS: Ibuprofen 800 MG Tab PO SCH ×2 (03:23→13:15)
--- NOTE | 2019-10-06 09:11 | PCM.DCSUM1 ---
Discharge Summary - Hospital Course Free Text/Narrative:: Technique is a 29-year-old 2 now para [birth year] white female was admitted electively on evening of 10/02/2019 for induction of labor. She has a history of incompetent cervix, had a cerclage placed at 12 weeks and removed at 37 weeks was admitted for induction of labor. She was felt to have a large baby and last ultrasound estimate of weight was 9 lbs. 2 oz. 1 week prior to induction. Patient underwent artificial rupture membranes induction with Pitocin augmentation. She progressed to approximately 8 cm and then became stalled at that point. Because of the patient's history of gestational diabetes on medications, estimated weight and lack of progress along with suspected clinical impression of an increased weight decision was made to proceed with section. She underwent a Primary lower uterine segment transverse section through Pfannenstiel skin incision on 10/03/2019. The baby did in a vertex presentation. Amniotic fluid-estimate at the time of delivery was 500 mL?-Was clear upon entrance into the abdominal cavity. Ovaries appeared to be polycystic but otherwise within normal limits. Baby was a male and weighed 4460 g (9 lbs. 13 oz.), had Apgars of 8 and 9. The baby was born at 2200 hrs. on 10/03/2019. Surgery duration 42 minutes. Estimated blood loss 2100 mL. Antibiotics Ancef 2 g IV preop and azithromycin 500 mg IV preop. Urine output 125 ml. Pre Op Diagnosis: 1. 39-3/7 week intrauterine , failure to progress. 2. Gestational diabetescontrolled with oral medications. 3. Inspected macrosomic infant by ultrasound. 4. Febrile in labor Post-Op Diagnosis: Same with delivery of viable 4460 g (9 lbs. 13 oz.) male with Apgars of 8 and 9 at 2200 hrs. on 10/03/2019. Anesthesia Technique: Spinal with local at the incision site using Marcaine 0.5 % 20%. Postoperatively patient has done very well. She has recovered nicely. She did receive 2 units of packed red blood cells which brought white count back to the 9+ hemoglobin range. Her vital signs were stable. Patient is been afebrile. She is desiring discharge home. She is nursing without problems. Discharge condition : Satisfactory Diagnosis: Stroke: No - Discharge Data Discharge Date: 10/06/19 Discharge Disposition: Home, Self-Care 01 Condition: Good - Referral to Home Health Primary Care Physician: Matias Mejia MD - Patient Summary/Data Operative Procedure(s) Performed: Primary lower uterine segment transverse section through Pfannenstiel skin incision - Patient Instructions Diet: Regular Diet as Tolerated (Nursing diet with increase calories and calcium is recommended) Activity: As Tolerated (No lifting greater than 15 pounds or driving a car 1 week. No intercourse or tampons until seen back in clinic.) Driving: Do Not Drive Showering/Bathing: May Shower Wound/Incision Care: Keep Operative Site/Wound Site Clean and Dry Notify Provider of: Fever, Increased Pain, Swelling and Redness, Drainage, Nausea and/or Vomiting - Discharge Plan Prescriptions/Med Rec: Ibuprofen 600 mg PO Q4HR PRN #30 tablet PRN Reason: Pain Home Medications: Home Meds Pnv No.95/Ferrous Fum/Folic AC [ Caplet] 1 tab PO BEDTIME 03/16/19 [ History] Ferrous Sulfate [Iron] 325 mg PO DAILY 10/02/19 [History] Acetaminophen/oxyCODONE [Percocet 325-5 MG] 2 tab PO Q4H PRN tablet 10/06/19 [ Rx] Ibuprofen 600 mg PO Q4HR PRN #30 tablet 10/06/19 [Rx] Ibuprofen [Motrin] 800 mg PO Q8H tablet 10/06/19 [Rx] Referrals: Matias Mejia MD [Primary Care Provider] - (Return to clinicDr. Mejia2 weeks.) - Discharge Summary/Plan Comment DC Time >30 min.: No Discharge Summary/Plan Comment: Discharge instructions: 1. Discharge home 2. Diet, activity and follow-up discussed with patient. Recommend nursing diet with increased calories and calcium. 3. Precautions given concern increased pain, bleeding, temperature, signs/ symptoms of DVT/PE. 4. Medications per home medication was printed, discussed with and given to the patient. 5. Return to clinic-Dr. Mejia[facility] in 2 weeks. Diagnosis: 1. Term -delivered 2. History of gestational diabetes on glyburide?delivered 3. History of incompetent cervix?status post cerclage placement/removal 4. Failure to progress-delivered by primary section Condition: Good - Patient Data Vitals - Most Recent: Last Vital Signs Temp 36.8 C 10/06/19 02:36 Pulse 81 10/06/19 03:23 Resp 16 10/06/19 02:36 BP 155/83 H 10/06/19 03:23 Pulse Ox 98 10/06/19 03:23 Weight - Most Recent: 122.289 kg Med Orders - Current: Current Medications Diphenhydramine HCl (Benadryl) 25 mg IVPUSH Q6H PRN PRN Reason: Itching or Nausea Docusate Sodium (Colace) 100 mg PO Q12H PRN PRN Reason: Constipation Last Admin: 10/05/19 20:23 Dose: 100 mg Ephedrine Sulfate (Ephedrine Sulfate) 5 mg IVPUSH SEECOMMENT PRN PRN Reason: Other Sodium Chloride (Normal Saline) 500 mls @ 125 mls/hr IV ASDIRECTED [facility] Last Admin: 10/04/19 01:30 Dose: 125 mls/hr Ibuprofen (Motrin) 800 mg PO Q8H [facility] Last Admin: 10/06/19 03:23 Dose: 800 mg Naloxone HCl (Narcan) 0.1 mg IVPUSH SEECOMMENT PRN PRN Reason: Respiratory Depression Ondansetron HCl (Zofran) 4 mg IV Q4H PRN PRN Reason: Nausea/Vomiting Oxycodone/Acetaminophen (Percocet 325-5 Mg) 2 tab PO Q4H PRN PRN Reason: Pain (moderate 4-6) Last Admin: 10/05/19 20:24 Dose: 2 tab Prenat Multivit/[place]/Iron/Folic Ac ( Plus Iron) 1 each PO DAILY [facility] Last Admin: 10/05/19 08:22 Dose: 1 each Discontinued Medications Acetaminophen (Tylenol) 975 mg PO Q4H PRN PRN Reason: PRN FEVER OF 101 Last Admin: 10/03/19 19:47 Dose: 975 mg Ampicillin Sodium (Ampicillin) Confirm Administered Dose 2 gm IV .STK-MED ONE Stop: 10/03/19 19:22 Last Admin: 10/03/19 20:49 Dose: Not Given Bisacodyl (Dulcolax) 10 mg RECTAL NOW STA Stop: 10/06/19 02:40 Last Admin: 10/06/19 03:24 Dose: 10 mg Bupivacaine HCl (Marcaine 0.5%) Confirm Administered Dose 30 ml .ROUTE .STK-MED ONE Stop: 10/03/19 21:33 Last Admin: 10/03/19 22:28 Dose: 20 ml Bupivacaine HCl (Sensorcaine-Mpf 0.25%) 10 ml .ROUTE .STK-MED ONE Stop: 10/03/19 00:01 Calcium Carbonate/Glycine (Tums) 1,000 mg PO Q2H PRN PRN Reason: Indigestion Cefazolin Sodium (Ancef) Confirm Administered Dose 3 gm .ROUTE .STK-MED ONE Stop: 10/03/19 21:38 Citric Acid/Sodium Citrate (Bicitra Solution) 30 ml PO ONETIME ONE Stop: 10/03/19 21:12 Last Admin: 10/03/19 21:12 Dose: 30 ml Diphenhydramine HCl (Benadryl) 25 mg IVPUSH Q6H PRN PRN Reason: pruritis Ephedrine Sulfate (Ephedrine Sulfate) 5 mg IVPUSH ASDIRECTED PRN PRN Reason: Hypotension Ephedrine Sulfate (Ephedrine Sulfate) 5 mg IVPUSH ASDIRECTED PRN PRN Reason: Hypotension Ephedrine Sulfate (Ephedrine In Ns) Confirm Administered Dose 25 mg .ROUTE .[employer]- MED ONE Stop: 10/03/19 22:10 Fentanyl (Sublimaze) 100 mcg EPIDUR Q3H PRN PRN Reason: Pain Last Admin: 10/03/19 09:39 Dose: 100 mcg Fentanyl (Sublimaze) Confirm Administered Dose 100 mcg .ROUTE .[employer]-MED ONE Stop: 10/03/19 21:35 Fentanyl (Sublimaze) 50 mcg IVPUSH Q5M PRN PRN Reason: Pain Fentanyl/Bupivacaine HCl (Fentanyl/Bupivacaine/Ns 2 Mcg-0.125% 100 Ml) 100 ml EPIDUR CONTINUOUS PRN PRN Reason: Pain Last Admin: 10/03/19 20:00 Dose: 100 ml Hydromorphone HCl (Dilaudid) 0.5 mg IVPUSH Q15M PRN PRN Reason: Pain (severe 7-10) Lactated Ringer's (Ringers, Lactated) 1,000 mls @ 100 mls/hr IV ASDIRECTED [place] Last Admin: 10/03/19 21:20 Dose: 100 mls/hr Oxytocin 20 unit/ Lactated (Ringer's) 1,002 mls @ 6.01 mls/hr IV TITRATE LA; Protocol Last Titration: 10/03/19 21:15 Dose: 0 munits/min, 0 mls/hr Oxytocin/Lactated Ringer's (Pitocin In Lr 10 Units/1,000 Ml) 10 unit in 1,000 mls @ 12 mls/hr IV TITRATE LA; Protocol Last Titration: 10/02/19 23:50 Dose: 20 munits/min, 120 mls/hr Oxytocin/Lactated Ringer's (Pitocin In Lr 10 Units/1,000 Ml) 10 unit in 1,000 mls @ 500 mls/hr IV .CONTINUOUS LA Oxytocin/Lactated Ringer's (Pitocin In Lr 20 Units/1,000 Ml) Confirm Administered Dose 20 unit in 1,000 mls @ as directed .ROUTE .STK-MED ONE Stop: 10/03/19 11:24 Last Admin: 10/03/19 20:49 Dose: Not Given Sodium Chloride (Normal Saline) Confirm Administered Dose 100 mls @ as directed .ROUTE .STK-MED ONE Stop: 10/03/19 19:22 Last Admin: 10/03/19 20:49 Dose: Not Given Ampicillin Sodium 2 gm/ Sodium (Chloride) 100 mls @ 200 mls/hr IV Q4H [place] Last Admin: 10/04/19 05:29 Dose: Not Given Azithromycin 500 mg/ Sodium (Chloride) 250 mls @ 250 mls/hr IV ONETIME ONE Stop: 10/03/19 22:11 Last Admin: 10/03/19 21:33 Dose: 250 mls/hr Lactated Ringer's (Ringers, Lactated) Confirm Administered Dose 2,000 mls @ as directed .ROUTE .STK-MED ONE Stop: 10/03/19 21:34 Phenylephrine HCl 1 mg/ Sodium (Chloride) 10.1 mls @ 1 mls/sec IV TITRATE LA; Protocol Dextrose/Lactated Ringer's (Dextrose 5%-Lactated Ringers) 1,000 mls @ 125 mls/ hr IV ASDIRECTED [place] Stop: 10/04/19 08:34 Last Admin: 10/04/19 02:14 Dose: 125 mls/hr Ketorolac Tromethamine (Toradol) Confirm Administered Dose 30 mg .ROUTE .STK- MED ONE Stop: 10/03/19 21:34 Lidocaine HCl (Xylocaine 1%) 20 ml INJECT ONETIME ONE Stop: 10/02/19 20:18 Last Admin: 10/04/19 05:30 Dose: Not Given Lidocaine/Epinephrine (Xylocaine-Mpf 2%-Epi 1:200,000) Confirm Administered Dose 20 ml .ROUTE .STK-MED ONE Stop: 10/03/19 21:34 Magnesium Hydroxide (Milk Of Magnesia) 30 ml PO ONETIME ONE Stop: 10/05/19 19:03 Last Admin: 10/05/19 19:58 Dose: 30 ml Metoclopramide HCl (Reglan) Confirm Administered Dose 10 mg .ROUTE .STK-MED ONE Stop: 10/03/19 21:10 Last Admin: 10/04/19 05:29 Dose: Not Given Metoclopramide HCl (Reglan) 10 mg IVPUSH ONETIME ONE Stop: 10/03/19 21:12 Last Admin: 10/03/19 21:11 Dose: 10 mg Morphine Sulfate (Duramorph Pf) Confirm Administered Dose 10 mg .ROUTE .STK-MED ONE Stop: 10/03/19 21:35 Morphine Sulfate (Duramorph Pf) Confirm Administered Dose 10 mg .ROUTE .STK-MED ONE Stop: 10/03/19 21:36 Nalbuphine HCl (Nubain) 10 mg IVPUSH Q2H PRN PRN Reason: Pain Ondansetron HCl (Zofran) 4 mg IVPUSH Q4H PRN PRN Reason: Nausea/Vomiting Last Admin: 10/03/19 14:39 Dose: 4 mg Ondansetron HCl (Zofran) 4 mg IVPUSH ONETIME PRN PRN Reason: Nausea/Vomiting Ondansetron HCl (Zofran) Confirm Administered Dose 4 mg .ROUTE .STK-MED ONE Stop: 10/03/19 21:34 Ondansetron HCl (Zofran) 4 mg IVPUSH ONETIME PRN PRN Reason: Nausea/Vomiting Oxytocin (Pitocin) Confirm Administered Dose 20 unit .ROUTE .STK-MED ONE Stop: 10/03/19 21:34 Phenylephrine HCl (Phenylephrine In Ns 100 Mcg/Ml) Confirm Administered Dose 1 mg .ROUTE .STK-MED ONE Stop: 10/03/19 21:34 Phenylephrine HCl (Phenylephrine In Ns 100 Mcg/Ml) Confirm Administered Dose 1 mg .ROUTE .STK-MED ONE Stop: 10/03/19 22:27 Sodium Chloride (Saline Flush) 10 ml FLUSH ASDIRECTED PRN PRN Reason: Keep Vein Open
[2019-10-06] MEDS: Prenatal Multivitamin with Calcium/Folic Acid/Iron Tab PO SCH (09:36)
== END 2019-10-06 13:27 | disposition home or self-care (01) | DRG 540 ==
LOC: JD.OB 18:42 → OBSVTOIN 10-03 22:00 → JD.OB 10-03 22:06
PROVIDERS: ADMIT Obstetrics & Gynecology; ATTEND Obstetrics & Gynecology
PROC: 10D00Z1 Extraction of Products of Conception, Low, Open Approach (ICD-10-PCS; principal; 2019-10-03)
PROC: 10907ZC Drainage of Amniotic Fluid, Therapeutic from Products of Conception, Via Natural or Artificial Opening (ICD-10-PCS; 2019-10-03)
PROC: 3E033VJ Introduction of Other Hormone into Peripheral Vein, Percutaneous Approach (ICD-10-PCS; 2019-10-03)
PROC: 30233N1 Transfusion of Nonautologous Red Blood Cells into Peripheral Vein, Percutaneous Approach (ICD-10-PCS; 2019-10-03)
DX: O24.425 Gestational diabetes mellitus in childbirth, controlled by oral hypoglycemic drugs (principal); D62 Acute posthemorrhagic anemia; O99.214 Obesity complicating childbirth; E66.9 Obesity, unspecified; O99.284 Endocrine, nutritional and metabolic diseases complicating childbirth; E28.2 Polycystic ovarian syndrome; O66.40 Failed trial of labor, unspecified; Z3A.39 39 weeks gestation of pregnancy; Z37.0 Single live birth; Z79.899 Other long term (current) drug therapy; Z88.1 Allergy status to other antibiotic agents; Z79.82 Long term (current) use of aspirin; Z79.84 Long term (current) use of oral hypoglycemic drugs
CPT/HCPCS: 01967; 01968; 36415; 36430; 51702; 59025; 82962; 85025; 86592; 86850; 86900; 86901; 86922; 94760; A9270-GY; J0290; J0456; J0690; J1885; J2270; J2370; J2405; J2590; J2765; J3010; J3490; J7040; J7042; J7050; J7120; P9016